=== PATIENT | female | born 1940 | race Caucasian/White ===

== ENCOUNTER 2021-12-24 21:18 | Observation (INO) ==
[2021-12-25] MEDS ORDERED: Ondansetron ODT 4 MG TAB.RAPDIS SL PRN (00:23)
[2021-12-25] MEDS ORDERED: Naloxone 0.4 MG/ML INJ IVP PRN (00:23)
[2021-12-25] MEDS ORDERED: Melatonin 3 MG TABLET PO PRN (00:23)
[2021-12-25] MEDS: Pantoprazole 40 MG in 0.9 % Sodium Chloride Mini Bag 100 ML IVC SCH ×5 (01:01→23:33)
[2021-12-25 02:38] LABS: Hematocrit 41.1 % (35.3-44.9); Hemoglobin 14.1 g/dL (11.5-15.4); Mean Corpuscular HGB Conc 34.3 g/dL (31.6-35.5); Mean Corpuscular Volume 93.4 fL (83.0-100.0); Mean Platelet Volume 12.7 fL (9.4-12.4); Platelet Count 155 K/mcL (140-400); Red Cell Distribution Width 13.1 % (11.5-14.5); White Blood Count 9.7 K/mcL (4.3-11.1)
[2021-12-25 02:41] LABS: Prothrombin Time 11.6 Seconds (9.4-12.1)
[2021-12-25 02:43] LABS: Activated Partial Thrombo Time 29.3 Seconds (26.0-36.0)
[2021-12-25 02:57] LABS: Calcium 9.7 mg/dL (8.6-10.3); Magnesium 1.9 mg/dL (1.6-2.6); Phosphorous 4.8 mg/dL (2.7-4.5); Potassium 3.7 mEq/L (3.5-5.1)
[2021-12-25] MEDS: 0.9 % Sodium Chloride 1,000 ML IVC SCH ×2 (08:17→23:36)
[2021-12-25] MEDS ORDERED: Lidocaine Jelly 6ml 1 APPL/6 ML JEL.PF.APP MM ONE ×2 (09:42→14:36)
[2021-12-25] MEDS ORDERED: Chloraseptic Spray 177 ML BOTTLE MM PRN (13:46)
[2021-12-25] MEDS ORDERED: Lidocaine Jelly 6ml 1 APPL/6 ML JEL.PF.APP ONE (14:49)
[2021-12-26] MEDS: Pantoprazole 40 MG in 0.9 % Sodium Chloride Mini Bag 100 ML IVC SCH ×7 (03:56→23:24)
[2021-12-26 05:08] LABS: Immature Granulocytes % 0.1 % (0-4); Mean Corpuscular Volume 97.5 fL (83.0-100.0); Red Cell Distribution Width 13.4 % (11.5-14.5)
[2021-12-26 05:10] LABS: Basophils # 0.1 K/mcL (0.0-0.2); Basophils % 0.7 %; Eosinophils # 0.1 K/mcL (0.0-0.6); Eosinophils % 1.7 %; Immature Platelets 11.3 % (1.1-6.1); Lymphocytes # 2.2 K/mcL (0.6-4.6); Lymphocytes % 31.2 %; Mean Corpuscular HGB Conc 33.3 g/dL (31.6-35.5); Mean Corpuscular Hemoglobin 32.5 pg (28.0-33.3); Mean Platelet Volume 13.4 fL (9.4-12.4); Monocytes # 0.8 K/mcL (0.0-1.3); Monocytes % 11.2 %; Neutrophils # 3.9 K/mcL (1.6-8.9); Platelet Count 120 K/mcL (140-400); Segmented Neutrophils % 55.1 %; White Blood Count 7.1 K/mcL (4.3-11.1)
[2021-12-26 05:28] LABS: Calcium 8.9 mg/dL (8.6-10.3); Magnesium 1.6 mg/dL (1.6-2.6); Phosphorous 2.8 mg/dL (2.7-4.5); Potassium 3.5 mEq/L (3.5-5.1)
[2021-12-26] MEDS: 0.9 % Sodium Chloride 1,000 ML IVC SCH (12:56)
[2021-12-26] MEDS: *HR* Heparin 5,000 UNIT/ML VIAL SQ SCH (17:32)
[2021-12-27] MEDS: 0.9 % Sodium Chloride 1,000 ML IVC SCH (04:37)
[2021-12-27] MEDS: Pantoprazole 40 MG in 0.9 % Sodium Chloride Mini Bag 100 ML IVC SCH (04:37)
[2021-12-27] MEDS: *HR* Heparin 5,000 UNIT/ML VIAL SQ SCH (06:24)
[2021-12-27 06:55] VITALS: BP 107/54; PULSE 55; TEMP 98.4; O2SAT 96
[2021-12-27] MEDS ORDERED: Patient Taking Own Medication 1 EACH OP SCH (09:00)
[2021-12-27] MEDS ORDERED: Latanoprost 2.5 ML BOTTLE LEFT EYE SCH (09:00)
[2021-12-27] MEDS ORDERED: Aspirin Enteric Coated 81 MG Tablet PO SCH (09:00)
== END 2021-12-27 12:24 | disposition home or self-care (01) ==
LOC: 3BNU → SUATTDRO 12-25 00:12
PROVIDERS: ADMIT Internal Medicine; ATTEND Internal Medicine